=== PATIENT | male | born 1980 | race Caucasian/White ===

== ENCOUNTER 2019-07-22 10:22 | Emergency (ER) | payer OTHER ==
[~2019-07-22] VITALS: Ht 182.9 cm; Wt 86.2 kg
[~2019-07-22 10:22] MED LIST: ACCUNEB SO1.25 MG/1 INH; ACETAMINOPHEN-1 EAC1 PO; ALBUTEROL2.5 MG/31 INH; BACTRIM DS TAB1 EACH PO; KEFLEX500 MG PO; NOHOMEMEDICATIONS; NORCO 5-325 TA1 EACH PO; PREDNISONE50 MG PO; VENTOLIN HFA 1818 GM INH; XANAX 0.5 MG0.5 M1 PO; XANAX 0.5 MG0.5 MG PO
[2019-07-22 11:26] LABS: INFLUENZA A ANTIGEN Negative (Negative); INFLUENZA B ANTIGEN Negative (Negative)
[2019-07-22] MEDS ORDERED: TESSALON PERLE100 MG PO (11:54)
[2019-07-22] MEDS ORDERED: AUGMENTIN 875-1 EACH PO (11:54)
[2019-07-22] MEDS ORDERED: MEDROLDOSEPACK PO (11:54)
[2019-07-22 12:02] VITALS: BP 123/90
--- NOTE | 2019-07-22 16:55 | EKG ---
[place] [address] ELECTROCARDIOGRAM REPORT Name: KATIEBOY Room: [facility]#: [id number] Admission: 07/22/19 Attend Phys: Discharge: 07/22/19 Date of : 84 Report #: [id number] THIS REPORT FOR: //name// [facility] ED Test Date: 2019-07-22 Test Time: 10:26:53 Pat Name: BOY WILSON Department: Room: Gender: [employer]: [place] : 1980 Requested By: Michelle Bhatti Order Number: [id number] Scott MD: Jesús Noe Measurements Intervals [place] Rate: 87 P: 63 MI: 130 QRS: 35 QRSD: 92 T: 38 QT: 366 QTc: 441 Interpretive Statements Sinus rhythm Compared to ECG 03/17/2017 07:25:06 No significant changes Electronically Signed On 07-22-2019 16:55:37 CDT by Jesús Noe [email or web address] <ELECTRONICALLY SIGNED> By: Jesús Noe MD, [facility] 07/22/19 1655 1026 1026 Jesús Noe MD, FACC /EPI
== END 2019-07-22 12:02 | disposition home or self-care (01) ==
LOC: M.ERS 10:22
PROVIDERS: Nurse Practitioner Family
DX: J45.909 Unspecified asthma, uncomplicated (principal); J32.9 Chronic sinusitis, unspecified; F41.9 Anxiety disorder, unspecified; Z88.1 Allergy status to other antibiotic agents